=== PATIENT | female | born 1985 | race Caucasian/White ===

== ENCOUNTER 2019-11-14 07:54 | Emergency (ER) | payer OTHER ==
[2019-11-14] MEDS ORDERED: CLINDAMYCIN 900MG/D5W 900 MG/50 ML IVPB IV ONE (09:07)
[2019-11-14] MEDS ORDERED: CEFTRIAXONE/SWI 1gm 1 GM/10 ML SYR ONE (09:07)
[2019-11-14] MEDS ORDERED: HYDROCODONE/APAP 7.5/325 MG TAB ONE (09:07)
[2019-11-14] MEDS ORDERED: NA CHLORIDE 0.9% 1,000 ML ONE (09:07)
[2019-11-14 09:10] LABS: Absolute Lymphocytes (CBC) 0.9 K/uL (0.7-4.9); Basophils % 0.4 % (0-1.3); Hematocrit 28.4 % (36.0-45.0); Lymphocytes % 12.6 % (15.3-44.8); MPV 8.2 fL (7.6-11.3); RBC Red Blood Cell Count 3.68 M/uL (3.86-4.86)
[2019-11-14 09:18] LABS: BUN Blood Urea Nitrogen 7 mg/dL (7-18); Bicarbonate 23 mmol/L (21-32); Glucose Level 74 mg/dL (74-106); Potassium 3.4 mmol/L (3.5-5.1); Sodium Level 141 mmol/L (136-145)
--- NOTE | 2019-11-14 09:19 | RAD REPORT ---
EXAM DESCRIPTION: US - OB Limited - 11/14/2019 8:46 am CLINICAL HISTORY: ABD CRAMPING, COMPARISON: No comparisons TECHNIQUE: Limited OB ultrasound study was performed. FINDINGS: Single intrauterine gestation is identified. Heart rate is 129 BPM. Anatomic assessment wa s not performed. Placenta is posterior fundal in location. No abruption, marginal hematoma or suspicious placental fin ding. Amniotic fluid index is 7.54 cm. Single largest pocket is 3.6 cm. Cervix assessment was somewhat limited due to the late gestational age in the cephalic presentation o f the head. The internal os does appear to be closed. IMPRESSION: Limited OB sonography shows a single gestation with a heart rate of 129 BPM. No placenta or amniotic fluid abnormality. Internal os appears closed.
[2019-11-14 09:53] LABS: Urine Blood NEGATIVE (NEG); Urine Glucose NEGATIVE (NEG); Urine Protein TRACE (NEG)
--- NOTE | 2019-11-14 10:12 | EDPHYS ---
Physician Documentation [facility] Name: Opal Monroe Age: 34 yrs Sex: Female : 1985 Arrival Date: 11/14/2019 Time: 07:57 Bed 16 Private MD: KYM Physician Jayme Singh HPI: 11/14 08:27 This 34 yrs old Female presents to ER via Ambulatory with complaints of Mouth adriano Swelling. 08:27 The patient presents with pain, redness, swelling. The problem is located in the left adriano jaw. Onset: The symptoms/episode began/occurred 3 day(s) ago. Duration: The symptoms are continuous, and are steadily getting worse. Modifying factors: The symptoms are alleviated by nothing, the symptoms are aggravated by chewing, talking. Associated signs and symptoms: The patient has no apparent associated signs or symptoms. 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 - Social history:: Smoking status: Patient/guardian denies using tobacco. - Ebola Screening: : Patient negative for fever greater than or equal to 101.5 degrees Fahrenheit, and additional compatible Ebola Virus Disease symptoms Patient denies exposure to infectious person Patient denies travel to an Ebola-affected area in the 21 days before illness onset No symptoms or risks identified at this time. ROS: 08:29 Constitutional: Negative for fever, chills, and weight loss, Eyes: Negative for injury, adriano pain, redness, and discharge, Neck: Negative for injury, pain, and swelling, Cardiovascular: Negative for chest pain, palpitations, and edema, Respiratory: Negative for shortness of breath, cough, wheezing, and pleuritic chest pain, Back: Negative for injury and pain, : Negative for injury, bleeding, discharge, and swelling, MS/Extremity: Negative for injury and deformity, Skin: Negative for injury, rash, and discoloration, Neuro: Negative for headache, weakness, numbness, tingling, and seizure, Psych: Negative for depression, anxiety, suicide ideation, homicidal ideation, and hallucinations, Allergy/Immunology: Negative for hives, rash, and allergies, Endocrine: Negative for neck swelling, polydipsia, polyuria, polyphagia, and marked weight changes, Hematologic/Lymphatic: Negative for swollen nodes, abnormal bleeding, and unusual bruising. 08:29 ENT: Positive for Gum pain 08:29 Abdomen/GI: Positive for abdominal distension, of the right upper quadrant, left upper quadrant, right lower quadrant and left lower quadrant. Exam: 08:29 Constitutional: This is a well developed, well nourished patient who is awake, alert, adriano and in no acute distress. Head/Face: Normocephalic, atraumatic. Eyes: Pupils equal round and reactive to light, extra-ocular motions intact. Lids and lashes normal. Conjunctiva and sclera are non-icteric and not injected. Cornea within normal limits. Periorbital areas with no swelling, redness, or edema. Neck: Trachea midline, no thyromegaly or masses palpated, and no cervical lymphadenopathy. Supple, full range of motion without nuchal rigidity, or vertebral point tenderness. No Meningismus. Chest/axilla: Normal chest wall appearance and motion. Nontender with no deformity. No lesions are appreciated. Cardiovascular: Regular rate and rhythm with a normal S1 and S2. No gallops, murmurs, or rubs. Normal PMI, no JVD. No pulse deficits. Respiratory: Lungs have equal breath sounds bilaterally, clear to auscultation and percussion. No rales, rhonchi or wheezes noted. No increased work of breathing, no retractions or nasal flaring. Back: No spinal tenderness. No costovertebral tenderness. Full range of motion. Skin: Warm, dry with normal turgor. Normal color with no rashes, no lesions, and no evidence of cellulitis. MS/ Extremity: Pulses equal, no cyanosis. Neurovascular intact. Full, normal range of motion. Neuro: Awake and alert, GCS 15, oriented to person, place, time, and situation. Cranial nerves II-XII grossly intact. Motor strength 5/5 in all extremities. Sensory grossly intact. Cerebellar exam normal. Normal gait. Psych: Awake, alert, with orientation to person, place and time. Behavior, mood, and affect are within normal limits. 08:29 ENT: Mouth: Oral mucosa: normal, Gums: normal with healthy appearance, Tongue: is normal, Posterior pharynx: is normal, airway is patent, no acute changes, Airway: normal, no evidence of obstruction, Dental exam: dental caries, fractured teeth are noted, gum swelling, that is mild, specifically in the lower left first molar (#19). Vital Signs: 08:05 BP 137 / 92; Pulse 93; Resp 16; Temp 98.4; Pulse Ox 99% on R/A; Weight 63.5 kg; Height iw 5 ft. 4 in. (162.56 cm); Pain 9/10; 09:16 BP 131 / 95; Pulse 81; Resp 16; Temp 98.6(O); Pulse Ox 100% on R/A; mh5 10:08 BP 129 / 88; Pulse 82; Resp 16; Temp 98.7(O); Pulse Ox 100% on R/A; mh5 11:24 BP 130 / 84; Pulse 77; Resp 16; Temp 98.5; Pulse Ox 99% ; bp 08:05 Body Mass Index 24.03 (63.50 kg, 162.56 cm) iw MDM: 08:07 Patient medically screened. [facility] 08:31 Data reviewed: vital signs, nurses notes, lab test result(s), radiologic studies, adriano ultrasound. 11/14 08:26 Order name: Abo/rh Typing; Complete Time: 10:[address] [facility] 11/14 08:26 Order name: Basic Metabolic Panel; Complete Time: 10:[address] [facility] 11/14 08:26 Order name: CBC with Diff; Complete Time: 10:[address] [facility] 11/14 08:26 Order name: Urine Culture [facility] 11/14 08:49 Order name: Urine Dipstick--Ancillary (enter results); Complete Time: 10:10 11/14 08:49 Order name: Urine --Ancillary (enter results); Complete Time: 10:10 11/14 08:31 Order name: OB Limited; Complete Time: 10:10 EDCT 11/14 10:39 Order name: ABO/RH no charge; Complete Time: 11:25 EDCT 11/14 08:26 Order name: IV Saline Lock; Complete Time: 08:[address] [facility] 11/14 08:26 Order name: Labs collected and sent; Complete Time: 08:[address] [facility] 11/14 08:26 Order name: NPO; Complete Time: 08:[address] [facility] 11/14 08:26 Order name: Urine Dipstick-Ancillary (obtain specimen); Complete Time: 08:47 adriano Administered Medications: 08:45 Drug: NS 0.9% 1000 ml Route: IV; Rate: 1 bolus; Site: left forearm; bp 11:26 Follow up: IV Status: Completed infusion; IV Intake: 1000ml bp 08:45 Drug: Rocephin 1 grams Route: IV; Rate: per protocol; Site: left forearm; bp 11:27 Follow up: IV Status: Completed infusion; IV Intake: 20ml bp 08:45 Drug: Clindamycin 900 mg Route: IVPB; Infused Over: 30 mins; Site: left forearm; bp 11:27 Follow up: IV Status: Completed infusion bp 09:15 Drug: [place] (7.5 mg-325 mg) 1 tabs Route: PO; bp 09:43 Follow up: Response: Pain is decreased iw 10:20 Drug: Potassium Effervescent Tablet 25 mEq Route: PO; iw 11:26 Follow up: Response: No adverse reaction bp Disposition: 11/14/19 10:11 Discharged to Home. Impression: Cracked tooth, Dental caries, Dental caries, unspecified, related conditions, unspecified, third trimester. - Condition is Stable. - Discharge Instructions: Abdominal Pain During , Dental Caries, Adult, Dental Pain, Tooth Injuries, Dental Pain, [id number], Pelvic Rest. - Prescriptions for Clindamycin HCl 300 mg Oral Capsule - take 1 capsule by ORAL route every 6 hours for 10 days; 40 capsule. Vitamin 27- 0.8 mg Oral Tablet - take 1 tablet by ORAL route once daily; 30 tablet. Tylenol- Codeine #3 300-30 mg Oral Tablet - take 2 tablets by ORAL route every 6 hours As needed; 20 tablet. - Medication Reconciliation Form, Thank You Letter, Antibiotic Education, Prescription Opioid Use form. - Follow up: Private Physician; When: 2 - 3 days; Reason: Recheck today's complaints, Continuance of care, Re-evaluation by your physician. Follow up: Grover Liang; When: 1 - 2 days; Reason: Recheck today's complaints, Re-evaluation by your physician. Follow up: Stevie Ignacio; When: 1 - 2 days; Reason: Recheck today's complaints, Re-evaluation by your physician. - Problem is new. - Symptoms have improved. Signatures: Dispatcher [employer] EDMS Jayme Singh MD MD cha Therrien, Shelly, [employer]UNITY [employer] Whitney Feldman, RN RN iw Josh Morris RN RN bp Corrections: (The following items were deleted from the chart) 08:12 08:05 Allergies: No Known Allergies; [facility] 08:31 08:27 OB Complete+US.RAD.BRZ ordered. [facility] 11:33 10:11 11/14/2019 10:11 Discharged to Home. Impression: Cracked tooth; Dental caries; bp Dental caries, unspecified; related conditions, unspecified, third trimester. Condition is Stable. Discharge Instructions: Abdominal Pain During , Dental Caries, Adult, Dental Pain, Tooth Injuries, Dental Pain, [id number], Pelvic Rest. Prescriptions for Clindamycin HCl 300 mg Oral Capsule - take 1 capsule by ORAL route every 6 hours for 10 days; 40 capsule, Vitamin 27-0.8 mg Oral Tablet - take 1 tablet by ORAL route once daily; 30 tablet, Tylenol-Codeine #3 300-30 mg Oral Tablet - take 2 tablets by ORAL route every 6 hours As needed; 20 tablet. and Forms are Medication Reconciliation Form, Thank You Letter, Antibiotic Education, Prescription Opioid Use. Follow up: Private Physician; When: 2 - 3 days; Reason: Recheck today's complaints, Continuance of care, Re-evaluation by your physician. Follow up: Grover Liang; When: 1 - 2 days; Reason: Recheck today's complaints, Re-evaluation by your physician. Follow up: Stevie Ignacio; When: 1 - 2 days; Reason: Recheck today's complaints, Re-evaluation by your physician. Problem is new. Symptoms have improved. adriano
--- NOTE | 2019-11-14 10:12 | ER ---
Nurse's Notes [facility] Name: Opal Monroe Age: 34 yrs Sex: Female : 1985 Arrival Date: 11/14/2019 Time: 07:57 Bed 16 Private MD: Diagnosis: Cracked tooth;Dental caries;Dental caries, unspecified; related conditions, unspecified, third trimester Presentation: 11/14 08:03 Presenting complaint: Patient states: had a toothache on left lower jaw, now has iw swelling to area since Wednesday, is getting bigger and harder, has been taking ibuprofen , is approx 7 months , LMP=sometime in March, has not had any care, 3rd . Transition of care: patient was not received from another setting of care. Onset of symptoms was November 10, 2019. Risk Assessment: Do you want to hurt yourself or someone else? Patient reports no desire to harm self or others. Initial Sepsis Screen: Does the patient meet any 2 criteria? No. Patient's initial sepsis screen is negative. Does the patient have a suspected source of infection? No. Patient's initial sepsis screen is negative. Care prior to arrival: None. 08:03 Method Of Arrival: Ambulatory iw 08:03 Acuity: MARTA 3 iw Triage Assessment: 08:05 General: Appears in no apparent distress. comfortable, Behavior is cooperative, bp appropriate for age, anxious. Pain: Complains of pain in right jaw. EENT: No deficits noted. Neuro: No deficits noted. Cardiovascular: No deficits noted. Respiratory: No deficits noted. GI: No signs and/or symptoms were reported involving the gastrointestinal system. : GRAVID UTERUS. Derm: No deficits noted. Musculoskeletal: No deficits noted. 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 - Social history:: Smoking status: Patient/guardian denies using tobacco. - Ebola Screening: : Patient negative for fever greater than or equal to 101.5 degrees Fahrenheit, and additional compatible Ebola Virus Disease symptoms Patient denies exposure to infectious person Patient denies travel to an Ebola-affected area in the 21 days before illness onset No symptoms or risks identified at this time. Screenin:15 Abuse screen: Denies threats or abuse. Denies injuries from another. Nutritional bp screening: No deficits noted. Tuberculosis screening: No symptoms or risk factors identified. Fall Risk None identified. Assessment: 08:05 General: SEE TRIAGE NOTE. bp 08:47 Reassessment: U/S COMPLETE. PER TECH, 34 WK , 129 FHT, NO GROSS ABNORMALITITIES.bp 10:15 Reassessment: D/C ON HOLD FOR IVF COMPLETION. bp 11:00 Reassessment: PROVIDER AT B/S FOR D/C. bp 11:24 Reassessment: PT D/C HOME AMBULATORY WITH FAMILY, DX WITH DENTAL CARIES AND bp RELATED CONDITION. Vital Signs: 08:05 BP 137 / 92; Pulse 93; Resp 16; Temp 98.4; Pulse Ox 99% on R/A; Weight 63.5 kg; Height iw 5 ft. 4 in. (162.56 cm); Pain 9/10; 09:16 BP 131 / 95; Pulse 81; Resp 16; Temp 98.6(O); Pulse Ox 100% on R/A; mh5 10:08 BP 129 / 88; Pulse 82; Resp 16; Temp 98.7(O); Pulse Ox 100% on R/A; mh5 11:24 BP 130 / 84; Pulse 77; Resp 16; Temp 98.5; Pulse Ox 99% ; bp 08:05 Body Mass Index 24.03 (63.50 kg, 162.56 cm) iw ED Course: 07:57 Patient arrived in ED. mr 08:05 Triage completed. iw 08:07 Jayme Singh MD is Attending Physician. adriano 08:07 Arm band placed on. iw 08:10 Josh Morris, RN is Primary Nurse. bp 08:15 Patient has correct armband on for positive identification. Bed in low position. Call bp light in reach. Side rails up X2. Adult w/ patient. 08:46 OB Limited In Process Unspecified. EDMS 08:58 Inserted saline lock: 20 gauge in left forearm, using aseptic technique. Blood bp collected. 10:11 Grover Liang DDS is Referral Physician. adriano 10:11 Stevie Ignacio MD is Referral Physician. adriano 11:26 No provider procedures requiring assistance completed. IV discontinued, intact, bp bleeding controlled, No redness/swelling at site. Pressure dressing applied. Administered Medications: 08:45 Drug: NS 0.9% 1000 ml Route: IV; Rate: 1 bolus; Site: left forearm; bp 11:26 Follow up: IV Status: Completed infusion; IV Intake: 1000ml bp 08:45 Drug: Rocephin 1 grams Route: IV; Rate: per protocol; Site: left forearm; bp 11:27 Follow up: IV Status: Completed infusion; IV Intake: 20ml bp 08:45 Drug: Clindamycin 900 mg Route: IVPB; Infused Over: 30 mins; Site: left forearm; bp 11:27 Follow up: IV Status: Completed infusion bp 09:15 Drug: [place] (7.5 mg-325 mg) 1 tabs Route: PO; bp 09:43 Follow up: Response: Pain is decreased iw 10:20 Drug: Potassium Effervescent Tablet 25 mEq Route: PO; iw 11:26 Follow up: Response: No adverse reaction bp Intake: 11:26 IV: 1000ml; Total: 1000ml. bp 11:27 IV: 20ml; Total: 1020ml. bp Outcome: 10:11 Discharge ordered by . adriano 11:26 Discharged to home ambulatory, with family. bp 11:26 Condition: stable 11:26 Discharge instructions given to patient, family, Instructed on discharge instructions, follow up and referral plans. medication usage, Demonstrated understanding of instructions, follow-up care, medications, Prescriptions given X 3. 11:33 Patient left the ED. bp Signatures: Dispatcher [employer] EDJayme Barnard MD MD cha Rivera, Mary mr Williams, Irene, RN NICHO Diana B[facility] Josh Morris RN RN bp Corrections: (The following items were deleted from the chart) 08:12 08:05 Allergies: No Known Allergies; iw lauri
[2019-11-14] MEDS ORDERED: POTASSIUM 25 MEQ EFFERV TAB ONE (10:25)
[2019-11-14 11:54] VITALS: BP 130/84; TEMP 98.5; O2SAT 99
== END 2019-11-14 11:33 | disposition home or self-care (01) ==
LOC: ER 07:54
DX: O26.893 Other specified pregnancy related conditions, third trimester (principal); Z3A.00 Weeks of gestation of pregnancy not specified; Z88.0 Allergy status to penicillin
CPT/HCPCS: 96365; 96368; 87088; 85025; 87086; 80048; 36415; 86900; 81025; 86901; 81003; 76815; 99284; 96366; J0696; J7030